=== PATIENT | female | born 1990 | race Caucasian/White ===

== ENCOUNTER → 2020-12-13 | Outpatient (CLI) | payer OTHER ==
[~2020-12-13] MED LIST: COLACE 100MG C100 MG PO
== END ==
LOC: EMI 08:00
DX: Q07.00 Arnold-Chiari syndrome without spina bifida or hydrocephalus (principal); G44.89 Other headache syndrome; G43.009 Migraine without aura, not intractable, without status migrainosus
CPT/HCPCS: 70551

== ENCOUNTER 2021-09-22 15:50 | Inpatient (IN) | payer OTHER ==
[~2021-09-22] VITALS: Ht 162.6 cm; Wt 158.8 kg
[2021-09-22 16:23] LABS: HEMOGLOBIN 12.8 gm/dl (12.3-15.3); RED BLOOD COUNT 4.1 M/UL (4.00-5.10); WHITE BLOOD COUNT 8.4 K/UL (4.5-11.0)
[2021-09-22] MEDS ORDERED: PROTONIX 40 MG40 MG PO (16:45)
[2021-09-22] MEDS ORDERED: LEXAPRO20 MG PO (16:45)
[2021-09-22] MEDS ORDERED: BUSPAR 10MG10 MG PO (16:46)
[2021-09-22] MEDS ORDERED: ZYRTEC10 M3 PO (16:46)
[2021-09-22] MEDS ORDERED: ASPIRIN81 MG PO (16:46)
[2021-09-22] MEDS ORDERED: MAGNESIUM400 MG PO (16:47)
[2021-09-22 19:32] LABS: BUN/CREATININE RATIO 14 (0-10)
[2021-09-25 06:10] LABS: HEMOGLOBIN 10.9 gm/dl (12.3-15.3)
[2021-09-26] MEDS ORDERED: HYDROCODON-ACE1 EAC4 PO (16:33)
[2021-09-26] MEDS ORDERED: LABETALOL HCL200 MG PO (16:33)
[2021-09-26] MEDS ORDERED: IBUPROFEN600 MG PO (16:33)
[2021-09-26] MEDS ORDERED: DOCUSATE SODIU100 MG PO (16:33)
[2021-09-26] MEDS ORDERED: CYCLOBENZAPRINE10 MG PO (16:39)
== END 2021-09-26 17:10 | disposition home or self-care (01) | DRG 788 ==
LOC: GENOP 15:50 → OB 16:01
PROVIDERS: Obstetrics & Gynecology; ADMIT Obstetrics & Gynecology
PROC: 10D00Z1 Extraction of Products of Conception, Low, Open Approach (ICD-10-PCS; principal; 2021-09-24 03:11)
DX: O13.4 Gestational [pregnancy-induced] hypertension without significant proteinuria, complicating childbirth (principal); O99.214 Obesity complicating childbirth; O99.52 Diseases of the respiratory system complicating childbirth; O99.344 Other mental disorders complicating childbirth; O99.62 Diseases of the digestive system complicating childbirth; K21.9 Gastro-esophageal reflux disease without esophagitis; F41.8 Other specified anxiety disorders; J45.909 Unspecified asthma, uncomplicated; E66.01 Morbid (severe) obesity due to excess calories; Z37.0 Single live birth; Z3A.37 37 weeks gestation of pregnancy; Z88.0 Allergy status to penicillin; Z88.8 Allergy status to other drugs, medicaments and biological substances; Z82.49 Family history of ischemic heart disease and other diseases of the circulatory system; Z83.3 Family history of diabetes mellitus; Z81.8 Family history of other mental and behavioral disorders; Z82.0 Family history of epilepsy and other diseases of the nervous system
CPT/HCPCS: 36415; 80053; 81001; 82570; 82800; 84156; 84550; 85014; 85018; 85025; 86850; 86900; 86901; 90472; 90707; C9113; J0360; J1170; J1580; J1650; J2274; J2405; J2590; J2765; J2795

== ENCOUNTER 2021-09-29 00:37 | Emergency (ER) | payer OTHER ==
[~2021-09-29 00:37] MED LIST changes: +ASPIRIN81 MG PO; +BUSPAR 10MG10 MG PO; +CYCLOBENZAPRINE10 MG PO; +DOCUSATE SODIU100 MG PO; +HYDROCODON-ACE1 EAC4 PO; +IBUPROFEN600 MG PO; +LABETALOL HCL200 MG PO; +LEXAPRO20 MG PO; +MAGNESIUM400 MG PO; +PROTONIX 40 MG40 MG PO; +ZYRTEC10 M3 PO
[2021-09-29 01:44] LABS: HEMOGLOBIN 10.8 gm/dl (12.3-15.3); RED BLOOD COUNT 3.49 M/UL (4.00-5.10); WHITE BLOOD COUNT 9.2 K/UL (4.5-11.0)
[2021-09-29 02:06] LABS: BUN/CREATININE RATIO 13 (0-10)
[2021-09-29] MEDS ORDERED: CEPHALEXIN500 M1 PO (03:57)
== END 2021-09-29 04:40 | disposition home or self-care (01) ==
LOC: ER1 00:37
PROVIDERS: Physician Assistant
DX: O99.73 Diseases of the skin and subcutaneous tissue complicating the puerperium (principal); L03.311 Cellulitis of abdominal wall; O10.93 Unspecified pre-existing hypertension complicating the puerperium; Z88.0 Allergy status to penicillin; Z88.8 Allergy status to other drugs, medicaments and biological substances; Z88.1 Allergy status to other antibiotic agents
CPT/HCPCS: 80053; 81001; 82150; 83605; 83690; 85025; 96374; 96375; 99283; J0696; J1885; Q9967